=== PATIENT | female | born 1980 | race African-American/Black ===

== ENCOUNTER 2019-10-25 09:46 | Outpatient (CLI) | payer BC, SELFPAY ==
--- NOTE | 2019-10-25 | DI.MRI_ITS ---
CLINICAL HISTORY: SUDDEN VISION LOSS,H53.139,ACUTE NECK PAIN, HEADACHE AFTER TRAUMA, CONCERN. TECHNIQUE: A 3D tvta-ue-glskgc study was performed.. COMPARISON: None. FINDINGS: Carotid Arteries: Petrous: Normal. Cavernous: Normal. Cerebral: Normal. Middle Cerebral Arteries: Right: No aneurysm or significant stenosis. Left: No aneurysm or significant stenosis. Anterior Cerebral Arteries: Right: No aneurysm or significant stenosis. Left: No aneurysm or significant stenosis. Vertebral Arteries: Right: No aneurysm or significant stenosis. Left: No aneurysm or significant stenosis. . Basilar Artery: No aneurysm or significant stenosis. Small Vessels: No evidence of beading. IMPRESSION: Normal MRA examination of the [place]. DATA REPOSITORY:
--- NOTE | 2019-10-25 | DI.MRI_ITS ---
EXAM: MR ANGIO NECK WO CLINICAL HISTORY: SUDDEN VISION LOSS,H53.139,ACUTE NECK PAIN, HEADACHE AFTER TRAUMA,. TECHNIQUE: 2D and 3D bpan-ul-dxvogl studies were performed. There is some artifact at the level of the aortic arch and proximal common carotid and vertebral arteries. COMPARISON: No exams were available for comparison FINDINGS: Common Carotid: Right: Normal. Left: Normal. External Carotid: Right: Normal. Left: Normal. Internal Carotid: Right: Normal. Left: Normal. Vertebral Artery: Right: Normal. Left: Normal. IMPRESSION: Normal MRA of the neck. No evidence of dissection, vascular injury or significant stenosis. DATA REPOSITORY:
--- NOTE | 2019-10-25 16:57 | DI.VRAD_ITS ---
PROCEDURE INFORMATION: Exam: MR Angiogram Head Without Contrast, Arteries Exam date and time: 10/25/2019 3:29 PM Age: 38 years old Clinical indication: Headache and visual disturbance; Sudden visual loss; Patient HX: Tree limb fell on neck 4 weeks ago, concern for vertebral artery dissection TECHNIQUE: Imaging protocol: MR angiogram head without contrast. Exam focused on the arteries. 3D rendering: MIP and/or 3D reconstructed images were created by the technologist. COMPARISON: MR ANGIO NECK WO 10/25/2019 4:07 PM FINDINGS: Anterior cerebral arteries: Intracranial segment is patent with no significant stenosis. No aneurysm. Right internal carotid artery: Intracranial segment is patent with no significant stenosis. No aneurysm. Right middle cerebral artery: No occlusion or significant stenosis. No aneurysm. Right posterior cerebral artery: No occlusion or significant stenosis. No aneurysm. Right vertebral artery: No occlusion or significant stenosis. No aneurysm. Left internal carotid artery: Intracranial segment is patent with no significant stenosis. No aneurysm. Left middle cerebral artery: No occlusion or significant stenosis. No aneurysm. Left posterior cerebral artery: No occlusion or significant stenosis. No aneurysm. Left vertebral artery: No occlusion or significant stenosis. No aneurysm. Basilar artery: No occlusion or significant stenosis. No aneurysm. IMPRESSION: No MRA evidence of intracranial arterial occlusion or significant stenosis. Dictated and Authenticated by: Bassam Peña MD. Ordering:NAS Welsh MD
--- NOTE | 2019-10-25 16:59 | DI.VRAD_ITS ---
PROCEDURE INFORMATION: Exam: MR Angiography Neck Without Contrast Exam date and time: 10/25/2019 4:26 PM Age: 38 years old Clinical indication: Headache and visual disturbance; Sudden visual loss; Patient HX: Tree limb fell on neck 4 weeks ago TECHNIQUE: Imaging protocol: Magnetic resonance angiography of the neck without contrast. 3D rendering: MIP and/or 3D reconstructed images were created by the technologist. COMPARISON: No relevant prior studies available. FINDINGS: Right common carotid artery: No significant stenosis or occlusion. Right internal carotid artery: Extracranial segment is patent without evidence of hemodynamically significant stenosis. Right external carotid artery: Unremarkable. Right vertebral artery: No significant stenosis or occlusion. Left common carotid artery: No significant stenosis or occlusion. Left internal carotid artery: Extracranial segment is patent without evidence of hemodynamically significant stenosis. Left external carotid artery: Unremarkable. Left vertebral artery: No significant stenosis or occlusion. IMPRESSION: No MRA evidence of occlusion or significant stenosis in the arteries of the neck. REFERENCES: NASCET CRITERIA. The degree of internal carotid artery stenosis is based on NASCET criteria. Normal is no stenosis. Mild is less than 50% stenosis. Moderate is 50-69% stenosis. Severe is 70% to 99% stenosis. Total occlusion is no detectable patent lumen. Dictated and Authenticated by: Bassam Peña MD. Ordering:NAS Welsh MD
== END 2019-10-25 10:06 ==
PROVIDERS: PCP Family Medicine; Visit Provider Family Medicine
DX: M54.2 Cervicalgia (principal); R51 Headache; H53.139 Sudden visual loss, unspecified eye
CPT/HCPCS: 70544; 70547

== ENCOUNTER 2020-04-25 01:59 | Outpatient (CLI) | payer BC, SELFPAY ==
--- NOTE | 2020-04-25 10:35 | DI.MAMMO_ITS ---
EXAM: MG MAMMO SCREENING CLINICAL HISTORY: SCREENING, Z12.31, [facility], Z00.00 TECHNIQUE: Mammograms were interpreted according to the usual protocol including computer analysis w [employer] CAD system, tomosynthesis and C-view imaging. COMPARISON: FINDINGS: The breasts are heterogeneously dense. No dominant mass or clumped microcalcification is identified in either breast. The current examination is compared with previous examination of July 2017 and ere has been no gross interval change in appearance in comparison with the prior study except for int erval reduction mammoplasty. IMPRESSION: No specific evidence of malignancy at this time. Routine screening examinations are suggested at yea rly intervals in this age group according to the ACR guidelines. BI-RADS Category 1 - Negative Breast Density - Category C - Heterogeneously dense
== END 2020-04-25 02:19 ==
PROVIDERS: PCP Family Medicine; Visit Provider Family Medicine
DX: Z00.00 Encounter for general adult medical examination without abnormal findings (principal); Z12.31 Encounter for screening mammogram for malignant neoplasm of breast
CPT/HCPCS: 77063; 77067

== ENCOUNTER 2020-12-29 19:23 | Observation (INO) | payer BC, SELFPAY ==
[2020-12-29] VITALS (44 sets, daily range): BP systolic 109–144; BP diastolic 71–97; PULSE 51–99; RESP 10–23; TEMP 37.1; O2SAT 98–100
--- NOTE | 2020-12-29 19:15 | RT.EKG_ITS ---
APPROVED REPORT Exam: Resting ECG Reason for Exam: chest pain Patient Location: E HR:99 bpm ECG Measurements Heart Rate 99 AXIS [place] 170 P 53 QRSd 87 QRS 16 QT 358 T 38 QTc 459 Conclusion Sinus rhythm. No ST elevation
--- NOTE | 2020-12-29 20:08 | DI.RAD_ITS ---
Exam(s) XR CHEST 2V PA LATERAL EXAM: XR CHEST 2V PA LATERAL CLINICAL HISTORY: chest pain TECHNIQUE: 2D digital imaging was performed. COMPARISON: No exams were available for comparison FINDINGS: The heart is not enlarged. The lungs are clear and well expanded. No pleural effusion seen. Mediastin al contours appear intact. IMPRESSION: Normal chest. RADIATION DOSE DELIVERED: Total DLP
[2020-12-29] MEDS: Aspirin 81 MG CHEW 324 MG CH (20:15)
[2020-12-29 20:27] LABS: Abs Immature Grans 0.02 10^3/uL (0.0-0.06); Absolute Basophil Count 0.06 10^3/uL (0.0-0.2); Absolute Eosinophil Count 0.31 10^3/uL (0.0-0.7); Absolute Lymphocyte Count 3.28 10^3/uL (1.2-3.4); Absolute Monocyte Count 0.57 10^3/uL (0.1-0.8); Absolute Neutrophil Count 2.92 10^3/uL (1.2-6.7); Basophils % 0.8; Eosinophils % 4.3; HCT 42.6 % (36.0-46.0); HGB 14.4 g/dL (11.2-15.7); Immature Grans % 0.3; Lymphocytes % 45.8; MCH 33.3 pg (27.0-33.0); MCHC 33.8 % (32.0-36.0); MCV 98.6 fL (80-95); MPV 11.5 fL (8.0-11.0); Neutrophils % 40.8; Nucleated RBC 0 %; Platelet Count 199 10^3/uL (130-400); RBC 4.32 10^6/uL (3.93-5.22); RDW 12.8 % (11.7-14.6); RDW-SD 46.6 fL; WBC 7.16 10^3/uL (4.4-10.8)
[2020-12-29 20:38] LABS: Prothrombin Time 10.4 sec (9.3-11.0)
--- NOTE | 2020-12-29 20:45 | ED.GENADUL_ITS ---
Discharge Plan Disposition Patient Disposition: [facility] INPATIENT Condition: Stable Discharge Details Chief Complaint: Chest Pain Clinical Impression: Chest pain Primary Care Provider: Blaise Harris ED Provider: [place] Home Meds and New Rx's Prescriptions: No Action calcium carbonate [Calcium 500] 500 MG tablet 500 mg PO BID 2AM 2 PM RF: 0 ibuprofen 200 MG tablet 800 mg PO PRN PRNRF: 0 levalbuterol tartrate [Xopenex HFA] 15 GM HFA aerosol inhaler 2 puff Inhalation RF: 0 multivitamin [Daily Multi-Vitamin] 1 EACH tablet 1 tab PO DAILY RF: 0 cephalexin 500 MG capsule 500 mg PO QID Qty: 28 RF: 0 cholecalciferol (vitamin D3) 1,000 UNIT tablet 5,000 unit PO DAILY RF: 0 Medical Decision Making <DAVE Capone - Last Filed: 12/29/20 23:34> This is a 40-year-old female who reports intermittent chest pain, dyspnea with exertion, dizziness, generalized fatigue, ever since receiving her Covid vaccine back in July. Was evaluated by her primary care for this, normal EKG. Symptoms woke her from sleep this morning and were different than her baseline. Did not take any medications for her symptoms. Clinically she appears well, nontoxic, hemodynamically stable. She is afebrile, O2 sats 100% on room air. Lungs are clear to auscultation. No reproducible discomfort. Differential is broad, includes not excluded to atypical ACS, CHF, costochondritis, pneumonia, PE, endocarditis, myocarditis, etc. Will provide a full dose aspirin, initiate cardiac work-up including BNP and D-dimer Upon reevaluation after receiving aspirin, patient reports that she is nearly asymptomatic, symptoms are improving. Initial laboratory values are unremarkable for any obvious emergent process. D- dimer 283, troponin less than 0.05 BNP 19. Potassium 3.1. Will provide 40 p.o. potassium. Patient states that with her dyspnea with exertion, she has not been working out as much as she has changed her diet, believes could be a reason why her potassium is low. Heart score of 1. Patient is agreeable to awaiting repeat troponin and EKG. Case was discussed with Dr. Erickson who personally evaluated the patient, please see his note. Patient again evaluated at 2200, reports that she feels well, asymptomatic. Awaiting repeat troponin and EKG. If unremarkable, plan is to subsequently discharge patient after successful rapid rule out here in the ER, she will contact her primary care office tomorrow to discuss her ER visit and need for reevaluation as an outpatient. She is scheduled to be seen on the but will attempt to be seen sooner. She understands that further evaluation such as echocardiogram and/or stress test likely indicated. Repeat EKG 2241, please see official report by Dr. Erickson. Sinus arrhythmia, prolonged AK interval, ventricular rate of 60. There appears to be an upsloping ST segment that was not present in the initial EKG. Given the change in the delta EKG, case discussed with Dr. Erickson, will discuss case with our hospitalist team for admission. Case discussed with Dr. Pugh who will personally come evaluate the patient and the exam room Repeat remains less than 0.05 Dr. Pugh evaluated the patient and agreeable to an observation admission Medical Records Medical records reviewed: Yes I reviewed the patient's medical records. Imaging Data Radiologic Study: Attestation: I personally reviewed and interpreted this imaging study as follows: Imaging: X-Ray Radiologist's impression: Exam: XR Chest Exam date and time: 12/29/2020 8:46 PM Age: 40 years old Clinical indication: Other: Chest pain TECHNIQUE: Imaging protocol: XR of the chest. Views: 2 views. COMPARISON: No relevant prior studies available. FINDINGS: Lungs: Unremarkable. No consolidation. Pleural spaces: Unremarkable. No pleural effusion. No pneumothorax. Heart/Mediastinum: Unremarkable. No cardiomegaly. Bones/joints: Unremarkable. IMPRESSION: No acute abnormality. Lab Data Lab results reviewed: Yes I reviewed the patient's lab results. Labs: Laboratory Tests Range/Units 12/29/20 12/29/20 12/29/20 19:35 19:35 19:35 WBC (4.4-10.8) 10^3/uL 7.16 RBC (3.93-5.22) 10^6/uL 4.32 Hgb (11.2-15.7) g/dL 14.4 Hct (36.0-46.0) % 42.6 MCV (80-95) fL 98.6 H MCH (27.0-33.0) pg 33.3 H MCHC (32.0-36.0) % 33.8 RDW (11.7-14.6) % 12.8 Plt Count (130-400) 10^3/uL 199 MPV (8.0-11.0) fL 11.5 H Immature Gran % 0.3 Neutrophils % 40.8 Lymphocytes % 45.8 Monocytes % 8.0 Eosinophils % 4.3 Basophils % 0.8 Nucleated RBC % % 0 Absolute Neutrophils (1.2-6.7) 10^3/uL 2.92 Absolute Lymphocytes (1.2-3.4) 10^3/uL 3.28 Absolute Monocytes (0.1-0.8) 10^3/uL 0.57 Absolute Eosinophils (0.0-0.7) 10^3/uL 0.31 Absolute Basophils (0.0-0.2) 10^3/uL 0.06 PT (9.3-11.0) sec 10.4 INR (0.9-1.1) 1.0 APTT (21.0-27.5) sec 25.0 D-Dimer (<500) ng/mlFEU 283 Sodium (136-145) mmol/L 141 Potassium (3.5-5.1) mmol/L 3.1 L Chloride (98-107) mmol/L 105 Carbon Dioxide (21.0-32.0) mmol/L 25.5 Anion Gap (3-11) mmol/L 10.5 BUN (7-18) mg/dL 8 Creatinine (0.55-1.02) mg/dL 0.9 Estimated GFR/1.73 m2 (mL/min/1.73m2) >= 60.00 Glucose (74-106) mg/dL 95 Calcium (8.5-10.1) mg/dL 9.3 Magnesium (1.8-2.4) mg/dL 1.8 Total Bilirubin (0.2-1.0) mg/dL 0.3 AST (15-37) U/L 20 ALT (14-59) U/L 26 Alkaline Phosphatase (46-116) U/L 83 Troponin I (<0.06) ng/mL < 0.05 NT-Pro-B Natriuret Pep (<300) pg/mL 19 Total Protein (6.4-8.2) g/dL 7.9 Albumin (3.4-5.0) g/dL 4.0 Range/Units 08/02/21 22:40 WBC (4.4-10.8) 10^3/uL RBC (3.93-5.22) 10^6/uL Hgb (11.2-15.7) g/dL Hct (36.0-46.0) % MCV (80-95) fL MCH (27.0-33.0) pg MCHC (32.0-36.0) % RDW (11.7-14.6) % Plt Count (130-400) 10^3/uL MPV (8.0-11.0) fL Immature Gran % Neutrophils % Lymphocytes % Monocytes % Eosinophils % Basophils % Nucleated RBC % % Absolute Neutrophils (1.2-6.7) 10^3/uL Absolute Lymphocytes (1.2-3.4) 10^3/uL Absolute Monocytes (0.1-0.8) 10^3/uL Absolute Eosinophils (0.0-0.7) 10^3/uL Absolute Basophils (0.0-0.2) 10^3/uL PT (9.3-11.0) sec INR (0.9-1.1) APTT (21.0-27.5) sec D-Dimer (<500) ng/mlFEU Sodium (136-145) mmol/L Potassium (3.5-5.1) mmol/L Chloride (98-107) mmol/L Carbon Dioxide (21.0-32.0) mmol/L Anion Gap (3-11) mmol/L BUN (7-18) mg/dL Creatinine (0.55-1.02) mg/dL Estimated GFR/1.73 m2 (mL/min/1.73m2) Glucose (74-106) mg/dL Calcium (8.5-10.1) mg/dL Magnesium (1.8-2.4) mg/dL Total Bilirubin (0.2-1.0) mg/dL AST (15-37) U/L ALT (14-59) U/L Alkaline Phosphatase (46-116) U/L Troponin I (<0.06) ng/mL < 0.05 NT-Pro-B Natriuret Pep (<300) pg/mL Total Protein (6.4-8.2) g/dL Albumin (3.4-5.0) g/dL ECG Data Attestation: I personally reviewed and interpreted this ECG (s) as follows: Interpretation: Please see official report by Dr. Erickson. Sinus rhythm, ventricular rate of 99. No ST elevation. <Jake Erickson MD - Last Filed: 12/29/20 21:56> Patient seen, examined, discussed with Mr. Lake. She is a pleasant and delightful 40-year-old female with atypical episodes of chest pain intermitt ently over weeks time. I agree with his assessment and plan including serial cardiac troponin, D-dimer and BNP. HPI <DAVE Capone - Last Filed: 12/29/20 23:34> General Mode of arrival: ambulatory . Date/Time Provider Initiated Documentation: 12/29/20 19:24 . Limitations to Documentation: no limitations . Information obtained by: patient . HPI Narrative: This is a 40-year-old female, past medical history of reactive airway disease, chronic sinusitis, presenting to the ER complaining of chest pain and dyspnea with exertion. Patient states that she received her first Covid vaccine, Moderna, back in July, had a reaction to it which included chest pain, dyspnea with exertion, lasted for 1 month. Was seen by her primary care provider, and after symptoms resolved completely she ended up having her second vaccine. States that she had another reaction at that time and essentially has had some fatigue, left-sided chest pain with exertion, dyspnea with exertion, intermittent dizziness, etc. ever since. She was seen by her primary care provider, had an EKG which was normal, and there was talk of if symptoms persisted they would look forward with an outpatient stress test. Patient states that earlier this morning she awoke from sleep with what she describes as left sided chest pain, went under her left breast, sharp in nature. Did not take any [id number] medication for this. She states at the time she felt dizziness, not like the room was spinning, felt diaphoretic, flushed. Symptoms improved throughout the day but never resolved completely. She went to work throughout the day, noticed some additional symptoms after work, her primary care office was closed came to the ER for further evaluation. Not describes her pain as a dull ache, does not radiate anywhere. She denies headache, visual changes, neck pain, cough, abdominal pain, nausea, vomiting. Patient did travel to [place] and reports that after her trip she did have bilateral lower extremity swelling but that resolved completely. Denies any pain or swelling in her legs now. Denies any significant family cardiac history. Patient is a smoker. Related Data Home Medications Medication Instructions Recorded Confirmed calcium carbonate [Calcium 500] 500 mg PO BID 2AM 2 PM 03/09/13 02/06/17 cholecalciferol (vitamin D3) 5,000 unit PO DAILY 06/16/16 02/06/17 cephalexin 500 mg PO QID #28 cap 02/06/17 levalbuterol tartrate [Xopenex HFA] 2 puff INHALATION 02/06/17 multivitamin [Daily Multi-Vitamin] 1 tab PO DAILY 02/06/17 02/06/17 ibuprofen 800 mg PO PRN PRN 02/08/17 Previous Rx's Medication Instructions Recorded cephalexin 500 mg PO QID #28 cap 02/06/17 Allergies Allergy/AdvReac Type Severity Reaction Status Date / Time Latex, Natural Rubber Allergy Severe Skin Rash Unverified 02/08/17 10:06 nitrofurantoin Allergy Severe Hives Unverified 02/08/17 10:06 [From Macrobid] General Stated Complaint: Chest Pain MICHAEL: 2 Review of Systems <DAVE Capone - Last Filed: 12/29/20 23:34> Constitutional Constitutional: Reports fatigue, Denies fever(s) and Denies headache(s) Eyes Eyes: Denies change in vision ENT Ears, Nose, Mouth, and Throat: Denies headache(s) and Denies neck pain Cardiovascular Cardiovascular: Reports chest pain, Reports dyspnea and Reports dyspnea on exertion Respiratory Respiratory: Denies cough, Reports dyspnea and Reports dyspnea on exertion Gastrointestinal Gastrointestinal: Denies abdominal pain, Denies nausea and Denies vomiting Musculoskeletal Musculoskeletal: Denies back pain, Denies neck pain, Denies numbness and Denies tingling Integumentary/Breasts Skin/Breast: Denies rash Neurologic Neurologic: Denies headache(s), Denies numbness and Denies tingling Endocrine Endocrine: Reports fatigue PFSH <DAVE Capone - Last Filed: 12/29/20 23:34> Medical History Chronic sinusitis Reactive airway disease Sciatica Surgical History Appendectomy after 2nd son. No sequelae. section 2006 [facility] Colonoscopy - MAC (06/16/16) EGD - MAC (06/16/16) Ligation of fallopian tube (02/06/13) Path report shows Bilateral tubal. Social History Smoking/Tobacco Use Status: Never Smoking risk assessment performed?: Yes Alcohol Intake: current Alcohol Intake frequency: holidays/special occasions only Drug use: Never Do you feel safe at home: Yes Do you feel safe in your relationship?: Yes Exam <DAVE Capone - Last Filed: 12/29/20 23:34> Const General: cooperative, healthy appearing, comfortable and no acute distress Orientation: alert and awake HENMT Head: normal to inspection, normocephalic and atraumatic Face and sinus: normal facial exam Mouth: moist mucous membranes Eyes General: appearance normal, both eyes and all related structures Conjunctivae: conjunctivae normal Neck Neck: normal visual inspection, full ROM, trachea midline and supple Chest Chest: normal inspection of the chest and normal palpation of entire chest wall Resp Effort & Inspection: normal respiratory effort and able to speak in complete sentences Auscultation: clear to auscultation bilaterally Cardio Rate: regular rate Rhythm: regular rhythm GI Inspection: normal to inspection Palpation: soft, not firm, no guarding, no pulsatile masses and nontender Back/Spine/Pelvis Back: no CVA tenderness and No back tenderness Skin General skin exam: no rashes or lesions noted Neuro General: patient alert, patient awake, moves all extremities and no focal motor deficits Cognition: normal cognition Speech: speech normal Gait: normal gait Motor: muscle tone normal throughout Sensory Exam: no sensory deficits noted Extrem General: normal to inspection, full ROM, capillary refill normal, no pedal edema and no calf tenderness Psych Appearance: grossly normal Mental Status: mental status grossly normal Course <DAVE Capone - Last Filed: 12/29/20 23:34> Vital Signs Vital signs: Vital Signs Temperature 37.1 C 12/29/20 19:29 Pulse 99 H 12/29/20 19:29 Respiratory Rate 20 12/29/20 19:29 Blood Pressure 143/86 H 12/29/20 19:29 Pulse Oximetry 100 12/29/20 19:29 Temperature 37.1 C 12/29/20 19:29 Pulse 99 H 12/29/20 19:29 Respiratory Rate 15 12/29/20 19:38 Respiratory Effort Non-Labored 12/29/20 19:38 Respiratory Depth Normal 12/29/20 19:38 Respiratory Pattern Normal 12/29/20 19:38 Blood Pressure 143/86 H 12/29/20 19:29 Blood Pressure Position Sitting 12/29/20 19:29 Pulse Oximetry 100 12/29/20 19:29 Oxygen Delivery Method Room Air 12/29/20 19:29 Oxygen Flow Rate 0 12/29/20 19:29 Pain Level 7 12/29/20 19:29 Lab/Test Results Lab/Test Results: Laboratory Tests Range/Units 12/29/20 12/29/20 19:35 19:35 WBC (4.4-10.8) 10^3/uL 7.16 RBC (3.93-5.22) 10^6/uL 4.32 Hgb (11.2-15.7) g/dL 14.4 Hct (36.0-46.0) % 42.6 MCV (80-95) fL 98.6 H MCH (27.0-33.0) pg 33.3 H MCHC (32.0-36.0) % 33.8 RDW (11.7-14.6) % 12.8 Plt Count (130-400) 10^3/uL 199 MPV (8.0-11.0) fL 11.5 H Immature Gran % 0.3 Neutrophils % 40.8 Lymphocytes % 45.8 Monocytes % 8.0 Eosinophils % 4.3 Basophils % 0.8 Nucleated RBC % % 0 Absolute Neutrophils (1.2-6.7) 10^3/uL 2.92 Absolute Lymphocytes (1.2-3.4) 10^3/uL 3.28 Absolute Monocytes (0.1-0.8) 10^3/uL 0.57 Absolute Eosinophils (0.0-0.7) 10^3/uL 0.31 Absolute Basophils (0.0-0.2) 10^3/uL 0.06 PT (9.3-11.0) sec 10.4 INR (0.9-1.1) 1.0 APTT (21.0-27.5) sec 25.0
[2020-12-29 20:52] LABS: ALT 26 U/L (14-59); AST 20 U/L (15-37); Alkaline Phosphatase 83 U/L (46-116); Anion Gap 10.5 mmol/L (3-11); BUN 8 mg/dL (7-18); Bilirubin, Total 0.3 mg/dL (0.2-1.0); CO2 25.5 mmol/L (21.0-32.0); CREATININE 0.9 mg/dL (0.55-1.02); Calcium 9.3 mg/dL (8.5-10.1); Chloride 105 mmol/L (98-107); Glucose 95 mg/dL (74-106); Magnesium 1.8 mg/dL (1.8-2.4); NT-proBNP 19 pg/mL (<300); Potassium 3.1 mmol/L (3.5-5.1); Sodium 141 mmol/L (136-145); Total Protein 7.9 g/dL (6.4-8.2); Troponin I < 0.05 ng/mL (<0.06)
[2020-12-29 20:59] LABS: D-Dimer 283 ng/mlFEU (<500)
[2020-12-29] MEDS: Potassium Chloride 20 MEQ TABCR 40 MEQ PO (20:59)
--- NOTE | 2020-12-29 21:55 | DI.VRAD_ITS ---
PROCEDURE INFORMATION: Exam: XR Chest Exam date and time: 12/29/2020 8:46 PM Age: 40 years old Clinical indication: Other: Chest pain TECHNIQUE: Imaging protocol: XR of the chest. Views: 2 views. COMPARISON: No relevant prior studies available. FINDINGS: Lungs: Unremarkable. No consolidation. Pleural spaces: Unremarkable. No pleural effusion. No pneumothorax. Heart/Mediastinum: Unremarkable. No cardiomegaly. Bones/joints: Unremarkable. IMPRESSION: No acute abnormality. Dictated and Authenticated by: Frederick Phillips MD. Ordering:DESIRAE Quiros MD
--- NOTE | 2020-12-29 22:30 | RT.EKG_ITS ---
APPROVED REPORT Exam: Resting ECG Reason for Exam: chest pain Patient Location: E HR:60 bpm ECG Measurements Heart Rate 60 AXIS [place] 210 P 48 QRSd 79 QRS 20 QT 409 T 36 QTc 408 Conclusion NSR, [place] elevation versus comparison from 19:34hrs
[2020-12-29 23:02] LABS: Troponin I < 0.05 ng/mL (<0.06)
--- NOTE | 2020-12-29 23:33 | W.PM.HP.N ---
Date of service: 12/29/20 Time of Service: 23:33 Assessment and Plan Assessment and plan (1) Chest pain: Status: Acute Assessment and plan: Atypical CP. No etiology evident, ACS unlikely. Temporal relation to vaccine noted but no specific connection to be made at present. The EKG change is noted, does not look like ischemia or pericarditis, I wonder if it may have some relation to replenishment of potassium? At any rate will complete trend of troponin and plan on stress test in AM. History of Present Illness History of Present Illness Chief Complaint: CP Narrative: 40 female, has been having some atypical CP since receiving Moderna COVID vaccine in July. Today however she experienced a different CP, described as follows: awoke her from sleep, sharp, left sided and non-radiating, associated with some diaphoresis and lightheadedness. Has had several episodes through the day and then decided to come for evaluation this evening as symptoms were not resolving. In ER initial findings of note for neg trop, EKG with slight TW flattening, K 3.1, d-Dimer 283. Patient given ASA and KCL 40 PO. Repeat trop negative but f/u EKG shows 1/2-1 mm J-point elevation V2-3, and generally more upright T waves throughout. Due to EKG changes I was asked to evaluate for admission. At present time patient states pain has largely resolved. Review of Systems All systems reviewed & are unremarkable except as noted in HPI and below PFSH Medical History Chronic sinusitis Reactive airway disease Sciatica Surgical History Appendectomy after 2nd son. No sequelae. section 2005 [facility] Colonoscopy - MAC (06/16/16) EGD - MAC (06/16/16) Ligation of fallopian tube (02/06/13) Path report shows Bilateral tubal. Social History Smoking/Tobacco Use Status: Never Smoking risk assessment performed?: Yes Alcohol Intake: current Alcohol Intake frequency: holidays/special occasions only Drug use: Never Do you feel safe at home: Yes Do you feel safe in your relationship?: Yes Meds Allergies and Home Medications Allergies Allergy/AdvReac Type Severity Reaction Status Date / Time Latex, Natural Rubber Allergy Severe Skin Rash Unverified 02/08/17 10:06 nitrofurantoin Allergy Severe Hives Unverified 02/08/17 10:06 [From Macrobid] Home Medications Medication Instructions Recorded Confirmed Type calcium carbonate [Calcium 500] 500 mg PO BID 2AM 2 PM 03/09/13 02/06/17 History cholecalciferol (vitamin D3) 5,000 unit PO DAILY 06/16/16 02/06/17 History cephalexin 500 mg PO QID #28 cap 02/06/17 Rx levalbuterol tartrate [Xopenex HFA] 2 puff INHALATION 02/06/17 History multivitamin [Daily Multi-Vitamin] 1 tab PO DAILY 02/06/17 02/06/17 History ibuprofen 800 mg PO PRN PRN 02/08/17 History Exam Narrative Exam Narrative: 118/52, 54, 37.1, 15, 99% RA. HEENT atraumatic; neck supple; JVP approx 6 cm; lungs clear; heart RRR w/o MRG; chest nontender, no pain with resisted left shoulder adduction or forward flexion; abdomen soft and NT; extremities w/o edema, clavs NT, pulse 2+/= Christian's negative; neuro Ox3, nonfocal Results Labs Result diagrams: 12/29/20 19:35 12/29/20 19:35 Labs: Laboratory Results - last 24 hr 12/29/20 12/29/20 12/29/20 19:35 19:35 19:35 WBC 7.16 RBC 4.32 Hgb 14.4 Hct 42.6 MCV 98.6 H MCH 33.3 H MCHC 33.8 RDW 12.8 Plt Count 199 MPV 11.5 H Immature Gran % 0.3 Neutrophils % 40.8 Lymphocytes % 45.8 Monocytes % 8.0 Eosinophils % 4.3 Basophils % 0.8 Nucleated RBC % 0 Absolute Neutrophils 2.92 Absolute Lymphocytes 3.28 Absolute Monocytes 0.57 Absolute Eosinophils 0.31 Absolute Basophils 0.06 PT 10.4 INR 1.0 APTT 25.0 D-Dimer 283 Sodium 141 Potassium 3.1 L Chloride 105 Carbon Dioxide 25.5 Anion Gap 10.5 BUN 8 Creatinine 0.9 Estimated GFR/1.73 m2 >= 60.00 Glucose 95 Calcium 9.3 Magnesium 1.8 Total Bilirubin 0.3 AST 20 ALT 26 Alkaline Phosphatase 83 Troponin I < 0.05 NT-Pro-B Natriuret Pep 19 Total Protein 7.9 Albumin 4.0 12/29/20 22:40 WBC RBC Hgb Hct MCV MCH MCHC RDW Plt Count MPV Immature Gran % Neutrophils % Lymphocytes % Monocytes % Eosinophils % Basophils % Nucleated RBC % Absolute Neutrophils Absolute Lymphocytes Absolute Monocytes Absolute Eosinophils Absolute Basophils PT INR APTT D-Dimer Sodium Potassium Chloride Carbon Dioxide Anion Gap BUN Creatinine Estimated GFR/1.73 m2 Glucose Calcium Magnesium Total Bilirubin AST ALT Alkaline Phosphatase Troponin I < 0.05 NT-Pro-B Natriuret Pep Total Protein Albumin Last Vital Signs Temp 37.1 C 12/29/20 19:29 Pulse 54 L 12/29/20 23:01 Resp 19 12/29/20 23:10 BP 118/82 12/29/20 23:01 Pulse Ox 100 12/29/20 23:10
[2020-12-30] VITALS (8 sets, daily range): BP systolic 105–124; BP diastolic 70–84; PULSE 54–72; RESP 12–18; TEMP 36–37.1; O2SAT 99–100
[2020-12-30 00:09] LABS: Source Nasal/Nares
[2020-12-30 00:58] LABS: COVID-19 PCR Negative (Negative)
[2020-12-30 08:36] LABS: Troponin I < 0.05 ng/mL (<0.06)
--- NOTE | 2020-12-30 08:50 | INITIAL_ITS ---
- If Service Date Differs Date of service: 12/30/20 Time of Service: 08:50 Care Management Initial Assess REASON FOR HOSPITALIZATION:: Chest Pain PAST MEDICAL HISTORY/PAST SURGICAL HISTORY:: Medical History . Chronic sinusitis. Reactive airway disease. Sciatica. Surgical History . Appendectomy. after 2nd son. No sequelae. section. 2005 [facility]. Colonoscopy - MAC (06/16/16). EGD - MAC (06/16/16). Ligation of fallopian tube (02/06/13). Path report shows Bilateral tubal. PREVIOUS FUNCTIONAL STATUS/SOCIAL/FAMILY SUPPORTS:: Ana [place] in [place] with her Ryan and three children. 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 CURRENT FUNCTIONAL STATUS:: Ana was sitting up in bed when CM met with her and was pleasant and easily engaged in conversation. Ana states that shes had intermittent chest pain since having her moderna vaccine in July. This time the chest pain and shortness of breath were different which promted her to drive herself to the ER. She is concerned about her health and not knowing what is causing her ongoing symptoms. She is scheduled for a stress test at 1:00 and is hopeful to find out more about the cause of her symptoms. She denies having chest pain, pressure or SOB since her admission. ADVANCE DIRECTIVES:: None on File Has patient been provided with info about the portal/API?: Yes Did the patient sign up for the portal?: No CODE STATUS:: Full Code INSURANCE COVERAGE / FINANCIAL ISSUES:: BS CURRENT HOME/COMMUNITY SERVICES/EQUIPMENT:: None PRIMARY CARE PHYSICIAN:: Blaise Harris POTENTIAL DISCHARGE NEEDS:: Follow up with PCP, [facility] pulmonology and plan of care. PATIENT/FAMILY EDUCATION NEEDS:: Review of discharge instructions, ask me three ANTICIPATED BARRIERS TO DISCHARGE:: None at this time TRANSPORTATION:: Via private vehicle with Ryan PLAN:: Ana will likely be discharged home with no new services following her stress test. She will follow up with her PCP, pulmonology and plan of care. CM continues to support discharge needs.
[2020-12-30 09:23] LABS: Potassium 4.2 mmol/L (3.5-5.1)
--- NOTE | 2020-12-30 13:00 | ETT_ITS ---
APPROVED REPORT Exam: Exercise Treadmill Patient Location: In-Patient Room/Bed: 230 Stress Nurse: Kendal Funes RN Ordering Provider:DAVID CROWELL, Contact Number: BMI: 29.44 Baseline Rhythm: Sinus Rhythm Indications: Chest pain, atypical Medical History Medical History: Reactive airway disease Cardiac Medications: Xopenex HFA Allergies: Latex, Nitrofurantoin Cardiac Risk Factors: FHX of CAD, Asthma Previous Cardiac Procedures: None Pretest Chest Pain Characteristics: No chest pain Exercise History: Sedentary since July, previously physically active Physical Disabilities: None Lung Sounds: Clear to auscultation Heart Sounds: Regular Stress Test Details Test: Exercise stress testing was performed using a Heber protocol. Rest Stress HR Resting HR Supine: 67 bpm Max Heart Rate (APMHR): 179 bpm Resting HR Standin bpm Target HR (85% APMHR): 152 bpm Max HR Achieved: 138 bpm % of APMHR: 77 Recovery HR: 80 bpm HR response to stress: Normal HR response to stress BP Resting BP Supine: 108/82 mmHg Resting BP Standin/78 mmHg Max BP: 144/82 mmHg Recovery BP: 114/78 mmHg BP response to stress: Normal blood pressure response to stress. ECG Resting ECG: Sinus Rhythm Ectopy: None Stress ECG: Sinus Tachycardia ST Change: No significant ST segment changes noted Arrhythmia: None Recovery ECG: Sinus Rhythm Recovery ST Change: No significant ST segment changes noted Recovery Arrhythmia: None Clinical Reason for Termination: Fatigue Stress Symptoms: Chest pressure, Dyspnea Exercise duration: 10 min38 sec Highest Stage Reached: Stage 4: 4.2 mph at 16% grade. Exercise capacity: 12.85 METs Garcia Treadmill Score: 6 Rate Pressure Product: Stress ECG Conclusion 1. The patient exercised for 10 minutes and 38 seconds (12.9 METS). Exercise was stopped due to fati sara. 2. The patient returned chest pressure but this was not exercise limiting. 3. The patient's heart rate and blood pressure augmented appropriately 4. There is no evidence of ischemia on the ECG portion of the exam. Garcia Treadmill Score is 6 which is Low risk. Stress Test Summary STAGE Time (mins) Speed (mph) Grade (%) HR BP SYMPTOMS METS Supine 67 108/82 Standing 82 106/78 SpO2 97% 1 3 1.7 10 106 110/80 3/10 chest pressure 4.6 2 6 2.5 12 124 120/76 moderate SOB 7 3 9 3.4 14 138 SpO2 95% 10.2 1 min recovery 118 144/82 5/10 chest pressure 3 min recovery 88 130/80 6 min recovery 80 114/78 symptoms resolved
--- NOTE | 2020-12-30 16:03 | W.PM.DS.N ---
Date of service: 12/30/20 Time of Service: 16:03 DS: Diagnosis Discharge Diagnosis (1) Chest pain: Status: Acute Discharge Plan Disposition Patient Disposition: HOME Condition: Stable Discharge Details Reason For Visit: CP Admit Date/Time: 12/29/20 23:49 Admit Provider: Frederick Pugh Attending Provider: Frederick Pugh Primary Care Provider: Blaise Harris [facility] Hospital Course: This is a 40-year-old female, past medical history of reactive airway disease, chronic sinusitis, presenting to the ER complaining of chest pain and dyspnea with exertion. Patient states that she received her first Covid vaccine, Moderna, back in July, had a reaction to it which included chest pain, dyspnea with exertion, lasted for 1 month. Was seen by her primary care provider, and after symptoms resolved completely she ended up having her second vaccine. States that she had another reaction at that time and essentially has had some fatigue, left-sided chest pain with exertion, dyspnea with exertion, intermittent dizziness, etc. ever since. She has used an albuterol MDI w/o improvement in her sxs. She has not required albuterol since she was in her 20's. She was seen by her primary care provider, had an EKG which was normal, and there was talk of if symptoms persisted they would look forward with an outpatient stress test. Patient states that earlier on the morning of admission she awoke from sleep with what she describes as left sided chest pain, went under her left breast, sharp in nature. Did not take any [id number] medication for this. She states at the time she felt dizziness, not like the room was spinning, felt diaphoretic, flushed. Symptoms improved throughout the day but never resolved completely. She went to work throughout the day, noticed some additional symptoms after work, her primary care office was closed came to the ER for further evaluation. Not describes her pain as a dull ache, does not radiate anywhere. She denies headache, visual changes, neck pain, cough, abdominal pain, nausea, vomiting. Patient did travel to [place] and reports that after her trip she did have bilateral lower extremity swelling but that resolved completely. Denies any pain or swelling in her legs now. Denies any significant family cardiac history. Patient is a smoker. Her troponin level was negative x 3. WBC count normal. CXR read as normal, but Dr Costa with pulmonary medicine evaluated the CXR and was concerned with some possibly mild perihilar fullness. An outpt CT chest and f/u with pulmonary medicine was arranged. Treadmill stress test was negative for EKG changes or anginal symptoms. Given the possibility of pericarditis, she will d/c on colchicine 0.6 mg daily for 7 days. F/U with PCP in 1-2 weeks. Home Meds and New Rx's Prescriptions: New colchicine 0.6 mg tablet 0.6 mg PO DAILY Qty: 7 RF: 0 Continued calcium carbonate [Calcium 500] 500 MG tablet 500 mg PO BID 2AM 2 PM RF: 0 levalbuterol tartrate [Xopenex HFA] 15 GM HFA aerosol inhaler 2 puff Inhalation RF: 0 multivitamin [Daily Multi-Vitamin] 1 EACH tablet 1 tab PO DAILY RF: 0 cephalexin 500 MG capsule 500 mg PO QID Qty: 28 RF: 0 ibuprofen 200 MG tablet 800 mg PO PRN PRNQty: 0 RF: 0 cholecalciferol (vitamin D3) 1,000 UNIT tablet 5,000 unit PO DAILY RF: 0 Discharge Instructions Stand Alone Forms: Nursing Discharge Form Referrals: Stephania Guzman MD [ [facility] STAFF PHYSICIAN] - (MCNULTY, chest pressure. CXR concerns for sarcoid Pulmonary Clinic will call you with an appointment date and time.) Activity:: Activity as Tolerated Equipment/Supplies:: No Equipment Needed Diet:: Normal Diet Discharge Orders Discharge Orders: Discharge Order (Routine); Ordered 12/30/20 Ordered By: Ricardo Jackson Other Ambulatory Orders: CT chest wo (Routine) Location: None Selected Ordered By: Ricardo Jackson DS: Summary Time Spent with Patient providing and/or coordinating discharge services: Greater than 30 minutes Status at Discharge Functional status at discharge: independent ambulation Overall status at discharge: patient is progressing back to baseline Mental Status: mental status grossly normal Speech and Movement: speech and movement normal Mood: congruent mood Affect: normal affect Exam Psych Mental Status: mental status grossly normal Speech and Movement: speech and movement normal Mood: congruent mood Affect: normal affect DS: Data Vitals/I&O Vitals and I&O: Vital Signs Temperature 36.8 C 12/30/20 11:38 Temperature Source Temporal Artery Scan 12/30/20 11:38 Pulse 57 L 12/30/20 11:38 Pulse Rhythm Regular 12/30/20 08:11 Pulse 55 L 12/29/20 23:41 Respiratory Rate 17 12/30/20 11:38 Respiratory Effort 12/30/20 08:11 Respiratory Depth Normal 12/30/20 08:11 Respiratory Pattern Normal 12/30/20 08:11 Blood Pressure 105/71 12/30/20 11:38 Blood Pressure Mean 84 12/29/20 23:31 Blood Pressure Position Sitting 12/29/20 19:29 Pulse Oximetry 100 12/30/20 11:38 Oxygen Delivery Method Room Air 12/30/20 11:38 Oxygen Flow Rate 0 12/30/20 11:38 Pain Level 0 12/30/20 11:38 Intake & Output 12/29/20 12/30/20 12/30/20 23:59 11:59 23:59 Intake Total 240 / 240 Balance 240 / 240 Weight 97.3 kg 85.077 kg Intake: Oral 240 / 240 Other: Comment using BR independenlty. denies GI issues. Data Completed and Pending Labs on day of discharge: Labs from last 24 hours 12/30/20 12/30/20 12/30/20 08:07 08:07 00:05 WBC RBC Hgb Hct MCV MCH MCHC RDW Plt Count MPV Immature Gran % Neutrophils % Lymphocytes % Monocytes % Eosinophils % Basophils % Nucleated RBC % Absolute Neutrophils Absolute Lymphocytes Absolute Monocytes Absolute Eosinophils Absolute Basophils PT INR APTT D-Dimer Sodium Potassium 4.2 D Chloride Carbon Dioxide Anion Gap BUN Creatinine Estimated GFR/1.73 m2 Glucose Calcium Magnesium Total Bilirubin AST ALT Alkaline Phosphatase Troponin I < 0.05 NT-Pro-B Natriuret Pep Total Protein Albumin COVID-19 Source Nasal/Nares SARS-CoV-2 (PCR) Negative 12/29/20 12/29/20 12/29/20 22:40 19:35 19:35 WBC 7.16 RBC 4.32 Hgb 14.4 Hct 42.6 MCV 98.6 H MCH 33.3 H MCHC 33.8 RDW 12.8 Plt Count 199 MPV 11.5 H Immature Gran % 0.3 Neutrophils % 40.8 Lymphocytes % 45.8 Monocytes % 8.0 Eosinophils % 4.3 Basophils % 0.8 Nucleated RBC % 0 Absolute Neutrophils 2.92 Absolute Lymphocytes 3.28 Absolute Monocytes 0.57 Absolute Eosinophils 0.31 Absolute Basophils 0.06 PT 10.4 INR 1.0 APTT 25.0 D-Dimer 283 Sodium Potassium Chloride Carbon Dioxide Anion Gap BUN Creatinine Estimated GFR/1.73 m2 Glucose Calcium Magnesium Total Bilirubin AST ALT Alkaline Phosphatase Troponin I < 0.05 NT-Pro-B Natriuret Pep Total Protein Albumin COVID-19 Source SARS-CoV-2 (PCR) 12/29/20 19:35 WBC RBC Hgb Hct MCV MCH MCHC RDW Plt Count MPV Immature Gran % Neutrophils % Lymphocytes % Monocytes % Eosinophils % Basophils % Nucleated RBC % Absolute Neutrophils Absolute Lymphocytes Absolute Monocytes Absolute Eosinophils Absolute Basophils PT INR APTT D-Dimer Sodium 141 Potassium 3.1 L Chloride 105 Carbon Dioxide 25.5 Anion Gap 10.5 BUN 8 Creatinine 0.9 Estimated GFR/1.73 m2 >= 60.00 Glucose 95 Calcium 9.3 Magnesium 1.8 Total Bilirubin 0.3 AST 20 ALT 26 Alkaline Phosphatase 83 Troponin I < 0.05 NT-Pro-B Natriuret Pep 19 Total Protein 7.9 Albumin 4.0 COVID-19 Source SARS-CoV-2 (PCR) [facility] Medical History Chronic sinusitis Reactive airway disease Sciatica Surgical History Appendectomy after 2nd son. No sequelae. section 2005 [facility] Colonoscopy - MAC (06/16/16) EGD - MAC (06/16/16) Ligation of fallopian tube (02/06/13) Path report shows Bilateral tubal. Social History Smoking/Tobacco Use Status: Never Smoking risk assessment performed?: Yes Alcohol Intake: current Alcohol Intake frequency: holidays/special occasions only Drug use: Never Do you feel safe at home: Yes Do you feel safe in your relationship?: Yes
--- NOTE | 2020-12-30 16:18 | PDOC.CMDIS ---
- If Service Date Differs Date of service: 12/30/20 Time of Service: 16:18 LACE Index Scoring Tool - Questions: Length of Stay (in days): 2 Acuity (Admit via E.D.?): Yes E.D. Visits: 1 - Answers: Total Score: 6 Risk of Readmission: Low Risk Care Management Discharge Reason for Hospitalization: Chest Pain Discharge Plan: Ana will discharge home via private vehicle with Ryan. Ana should follow up with her PCP in 1-2 weeks and schedule an appointment with [facility] Pulmonology (Pulmonology clinic to call Ana with the appointment date and time). Patient/Family Education Needs: Review discharge instructions and plan to follow up with PCP and [facility] pulmonology, ask me three.
== END 2020-12-30 17:15 | disposition home or self-care (01) ==
LOC: ER 12-30 00:29 → MS 12-30 00:42
PROVIDERS: Admitting Provider General Practice; Emergency Provider Physician Assistant; PCP Family Medicine; Visit Provider General Practice
DX: R07.89 Other chest pain (principal); J45.909 Unspecified asthma, uncomplicated; J32.8 Other chronic sinusitis; R06.00 Dyspnea, unspecified; Z20.822 Contact with and (suspected) exposure to COVID-19; M54.30 Sciatica, unspecified side
CPT/HCPCS: 36415; 80053; 87635; 93005; 99285; 71046; 83735; 83880; 84132; 84484; 85025; 85379; 85610; 85730; 93010; 93017; 99217; 99219; G0378

== ENCOUNTER 2021-02-05 02:16 | Outpatient (CLI) | payer BC, SELFPAY ==
--- NOTE | 2021-02-05 06:15 | DI.US_ITS ---
APPROVED REPORT EXAM: Comprehensive 2D, Doppler, and color-flow Echocardiogram Patient Location: Out-Patient [employer] Operator: Sherry Chanel RDCS (AE) Indications: MCNULTY, Chest pain Other Information Study Quality: Good Conclusion Normal left ventricular wall thickness and chamber size. Estimated ejection fraction is 60 to 65%. Wall motion is normal Normal right ventricular size and systolic function Both atria are normal in size There is no hemodynamically significant valvular disease Mildly dilated ascending aorta measuring 3.53 cm Wall motion Left Ventricle The left ventricle is normal size. The left ventricular systolic function is normal. The left ventric ular ejection fraction is within the normal range. There is normal left ventricular wall thickness. T here is normal LV segmental wall motion. There is no ventricular septal defect visualized. LVEF is 60 -65%. Right Ventricle The right ventricle is normal size. The right ventricular systolic function is normal. The RVSP is 21 .5mmHg. Atria The left atrium size is normal. The right atrium size is normal. The interatrial septum is intact wit h no evidence for an atrial septal defect. Aortic Valve The aortic valve is normal in structure. Aortic valve is trileaflet. There is no aortic valvular sten osis. No aortic regurgitation is present. Mitral Valve The mitral valve is normal in structure. No evidence of mitral valve stenosis. Trace mitral regurgita tion. Tricuspid Valve The tricuspid valve is normal in structure. There is no tricuspid valve stenosis. Trace to mild tricu spid regurgitation. Pulmonic Valve The pulmonary valve is normal in structure. There is no pulmonic valvular stenosis. Trace pulmonic re gurgitation. Great Vessels The aortic root is normal in size. The ascending aorta is mildly dilated.3.53 cm Aortic arch is debbie l in caliber. IVC is normal in size and collapses >50% with inspiration. Pericardium There is no pericardial effusion. 2D Dimensions IVSD d PLAX 0.81 cm F: 0.6-1.0 LV Vol A2C d MOD 109.9 mL LVPW d PLAX 0.84 cm F: 0.6 - 1.0 LV Vol A4C d MOD 96.5 mL LVID d PLAX 4.62 cm F: 3.8 - 5.2 LA vol/ BSA A2C s A-L 28.1 mL/m2 LVDs 3.15 cm F: 2.2 - 3.5 LA vol/ BSA A4C s A-L 20.2 mL/m2 Ao Root d 3.03 cm F: 2.7 - 3.3 LA Vol/ BSA Biplane s A-L 24.2 mL/m2 RA Area A4C 13.56 cm2 LA Area A4C s MOD 15.97 cm2 RA Vol/ BSA A4C s A-L 15.4 mL/m2 LA Area A2C s MOD 19.12 cm2 Ao Asc Diam d 3.53 cm F: 2.3 - 3.1 LV EF A4C MOD 59.9 % LV EF Teichholz 58.9 % LV EF A2C MOD 58.3 % LVEF (Odbson's) 59.12 % F: 54 - 74 LV EF Biplane MOD 59.1 % LV Volume 77.45 mL F: 46 - 106 SV 60.92 mL LV Volume Index 39.11 mL/m2 F: 29 - 61 SV Index 30.65 mL/m2 LV Vol Biplane MOD 103.0 mL FS 31.10 % M-Mode TAPSE 2.28 cm (M/F) >1.7 LV Diastology MV E' medial 0.052 (>0.07 m/s) E/A Ratio 1.3 LV E/e MED 10.00 (<14) MV E Vmax 0.52 (0.4-1.3 m/s) MV E' lateral 0.122 (>0.1 m/s) MV A Vmax 0.40 (0.4-1.3 m/s) LV E/e LAT 4.25 (<14) MV E/A Ratio 1.28 MV E/E' medial 10.04 MV E/E' lateral 4.28 Aortic Valve LVOT Area 3.04 cm2 AoV Area Vmax 2.99 cm2 LVOT Vmax 1.26 m/s AoV Area/ BSA (Vmax) 1.50 cm2/m2 LVOT Mean Dangelo. 0.78 m/s CAIO Mean Dangelo. 2.70 cm2 LVOT Peak Grad 6.4 mmHg CAIO Mean Dangelo. Index 1.36 cm2/m2 LVOT Mean Grad 2.9 mmHg LVOT VTI 0.249 m LVOT Diam s 1.95 cm AoV Vmax 1.28 m/s Velocity Ratio 0.98 AoV Mean Dangelo. 0.87 m/s AoV Peak Grad 6.6 mmHg LVOT SV 75.67 mL AoV Mean Grad 3.4 mmHg AoV VTI 0.238 m AoV Area VTI 3.18 cm2 AoV Area/ BSA (VTI) 1.60 cm/m2 Mitral Valve MV DT 204 (160-240 msec) MV PHT 59 msec MV Area PHT 3.71 cm2 MV VTI 0.198 m MV Area VTI 3.81 (4.0-6.0 cm2) Pulmonary Valve PV Vmax 1.09 (0.5-1.5 m/s) RVOT Peak Gr. 2.08 mmHg PV Peak Grad 4.8 mmHg RVOT Mean Gr. 0.95 mmHg PV Mean Grad 2.4 mmHg RVOT VTI 0.158 m PV VTI 0.242 m RVOT Vmax 0.72 m/s Tricuspid Valve TR Peak Grad 18.5 mmHg TR Vmax 2.15 m/s RA Pressure 3.00 mmHg RVSP (TR) 21.5 mmHg
== END 2021-02-05 02:36 ==
PROVIDERS: PCP Family Medicine; Visit Provider Student in an Organized Health Care Education/Training Program
DX: R07.9 Chest pain, unspecified (principal); R06.09 Other forms of dyspnea; I77.810 Thoracic aortic ectasia
CPT/HCPCS: 93306

== ENCOUNTER 2021-03-20 09:22 | Outpatient (REF) | payer BC, SELFPAY ==
[2021-03-20 14:19] LABS: Calculated LDL 103 mg/dL (<100); Cholesterol 167 mg/dL (<200); HDL Cholesterol 57 mg/dL (40-60); Hemoglobin A1C 5.2 % (<5.7); Triglyceride 37 mg/dL (<150)
[2021-03-23 11:12] LABS: Hepatitis C Ab w Rflx HCV PCR Negative (Negative)
[2021-03-23 22:14] LABS: Strongyloides IgG Antibody Negative (Negative)
== END 2021-03-20 09:23 | disposition home or self-care (01) ==
LOC: NCHCN 09:22
PROVIDERS: PCP Family Medicine; Visit Provider Family Medicine
DX: Z00.00 Encounter for general adult medical examination without abnormal findings (principal); R06.02 Shortness of breath
CPT/HCPCS: 80061; 86803; 83036; 86682

== ENCOUNTER 2021-06-17 10:29 | Outpatient (REF) | payer BC, SELFPAY ==
[2021-06-18 11:08] LABS: Anion Gap 5.6 mmol/L (3-11); BUN 15 mg/dL (7-18); CO2 27.4 mmol/L (21.0-32.0); CREATININE 0.8 mg/dL (0.55-1.02); Calcium 9.1 mg/dL (8.5-10.1); Chloride 106 mmol/L (98-107); Glucose 91 mg/dL (74-106); Magnesium 2.1 mg/dL (1.8-2.4); Potassium 4.3 mmol/L (3.5-5.1); Sodium 139 mmol/L (136-145); TSH (W/Ref FT4) 1.76 uIU/mL (0.36-3.74)
== END 2021-06-17 10:30 | disposition home or self-care (01) ==
LOC: NCHCN 10:29
PROVIDERS: PCP Family Medicine; Visit Provider Family Medicine
DX: R00.2 Palpitations (principal)
CPT/HCPCS: 80048; 83735; 84443

== ENCOUNTER 2021-06-19 12:49 | Outpatient (RCR) | payer BC, SELFPAY ==
--- NOTE | 2021-06-19 16:45 | HOLTER_ITS ---
APPROVED REPORT Conclusion This is a 48-hour Holter monitor ordered for palpitations Predominant rhythm is sinus with an average heart rate of 71. Minimum was 51, maximum 128 A total of 2 isolated PVCs were seen A total of 12 premature atrial contractions were recorded There was no atrial fibrillation, no high-grade AV block, no pauses greater than 3 seconds No patient symptoms were reported
== END 2021-06-29 23:59 | disposition home or self-care (01) ==
LOC: RT 12:49
PROVIDERS: PCP Family Medicine; Visit Provider Family Medicine
DX: R00.2 Palpitations (principal); I49.3 Ventricular premature depolarization; I49.1 Atrial premature depolarization
CPT/HCPCS: 93225; 93226

== ENCOUNTER 2022-06-15 20:09 | Outpatient (REF) | payer BC, SELFPAY ==
[2022-06-15 19:04] LABS: Abs Immature Grans 0.01 10^3/uL (0.0-0.06); Absolute Basophil Count 0.04 10^3/uL (0.0-0.2); Absolute Eosinophil Count 0.35 10^3/uL (0.0-0.7); Absolute Monocyte Count 0.44 10^3/uL (0.1-0.8); Absolute Neutrophil Count 2.78 10^3/uL (1.2-6.7); Basophils % 0.6; Eosinophils % 5.6; HCT 39.9 % (36.0-46.0); HGB 13.7 g/dL (11.2-15.7); Immature Grans % 0.2; Lymphocytes % 41.8; MCH 33.6 pg (27.0-33.0); MCHC 34.3 % (32.0-36.0); MCV 98 fL (80-95); MPV 10.9 fL (8.0-11.0); Monocytes % 7.1; Neutrophils % 44.7; Platelet Count 203 10^3/uL (130-400); RBC 4.08 10^6/uL (3.93-5.22); RDW 12.6 % (11.7-14.6); RDW-SD 45.2 fL; WBC 6.22 10^3/uL (4.4-10.8)
[2022-06-15 19:25] LABS: ALT 19 U/L (14-59); AST 22 U/L (15-37); Albumin 3.8 g/dL (3.4-5.0); Alkaline Phosphatase 79 U/L (46-116); BUN 6 mg/dL (7-18); Bilirubin, Total 0.5 mg/dL (0.2-1.0); CREATININE 0.9 mg/dL (0.55-1.02); Calcium 9.1 mg/dL (8.5-10.1); Chloride 104 mmol/L (98-107); Estimated GFR 81.86 (mL/min/1.73m2); Glucose 88 mg/dL (74-106); Lipase 151 U/L (73-393); Potassium 3.9 mmol/L (3.5-5.1); Sodium 138 mmol/L (136-145); Total Protein 7.1 g/dL (6.4-8.2)
[2022-06-17 12:25] LABS: IgA 376 mg/dL (85-499); Interpretation (See Note); Tissue Transglutaminase IgA <1.2 U/mL (<4.0)
== END 2022-06-15 20:10 | disposition home or self-care (01) ==
LOC: NCHCN 20:09
PROVIDERS: PCP Family Medicine; Visit Provider Family Medicine
DX: R10.9 Unspecified abdominal pain (principal)
CPT/HCPCS: 80053; 82784; 83516; 83690; 85025

== ENCOUNTER 2022-08-23 11:37 | Outpatient (REF) | payer BC, SELFPAY ==
--- NOTE | 2022-08-23 11:26 | ENDOMET_PTH ---
PATIENT: Ana Marcum LOC: [facility] U#:[id number] AGE/SX: 41/F ROOM: RE08/23/[address]: Brea Thapa MD : [id number] BED: DIS: 08/23/2022 SPEC #: [id number] RECD: 08/23/22 17:39 STATUS: TONY REQ #: [id number] RHONA: 08/23/22 11:[address]: Brea Thapa DEPT: Surgical Specimen RECD BY: Sandy Alejandro ENTERED: 08/23/22 17:40 SP TYPE: Endomet OTHR DR: Blaise Harris Tissues: 1 - ENDOMETRIUM BX/DEBBIE Procedures: GROSS AND MICRO LEVEL 4 Comments: [id number]
== END 2022-08-23 11:38 | disposition home or self-care (01) ==
LOC: LBN 11:37
PROVIDERS: PCP Family Medicine; Visit Provider Obstetrics & Gynecology
DX: N85.8 Other specified noninflammatory disorders of uterus (principal); N93.8 Other specified abnormal uterine and vaginal bleeding
CPT/HCPCS: 88305

== ENCOUNTER → 2023-11-11 01:22 | Outpatient (CLI) | payer BC, SELFPAY ==
--- NOTE | 2023-11-11 | DI.MAMMO_ITS ---
Exam(s) MAMMO SCREENING EXAM: MAMMO SCREENING CLINICAL HISTORY: SCREENING.Z12.31. TECHNIQUE: Bilateral full field digital CC and MLO mammographic images were obtained with 3D tomosyn thesis and utilizing computer aided detection (CAD). COMPARISON: Prior mammograms were reviewed. FINDINGS: In the left breast there is asymmetric density in the retroareolar region now evident which measures 1.5 by 0.8 cm, located 1.5 cm in from the nipple on the CC view. Requires further imaging. In the upper outer quadrant of the left breast there is a small asymmetric density also more prominen t than on prior studies-possible nodule, this measuring approximately 8 x 4 mm and approximately 12 c m in from the nipple, lateral of center on the CC view. There are no malignant-appearing microcalcification groups. No new significant findings in the oppos ite-right breast. There is no significant architectural distortion nor skin thickening-retraction. IMPRESSION: 1. No radiographic evidence of malignancy in the right breast. 2. There are 2 asymmetric densities-possible nodules in the left breast, 1 anteriorly and 1 posterola terally. Additional spot compression views and breast ultrasound recommended. BI-RADS Category 0 - Assessment Incomplete: Need additional imaging evaluation Breast Density - Category B - Scattered areas of fibroglandular density Breast density Category C or D implies that the patient has dense breast tissue. Dense breast tissue can make it harder to find cancer on a mammogram. Dense breast tissue is also associated with an incr eased risk of breast cancer. This information about the result of the mammogram report was provided to the patient to raise their awareness. Use this report when you speak with the patient about their risks for breast cancer, which includes their family history. At that time, you may recommend additional screening tests (Ultrasoun d or MRI) as these tests may add significant information. A negative radiographic report should not delay biopsy if a dominant or clinically suspicious mass is present. Up to ten percent of cancers are not identified on mammography. A negative report may reinforce clinical impression. Adenosis and dense breasts may obscure an underlying neoplasm. False positive reports average 6 to 10%. Patient will receive a letter notifying them of these results.
== END ==
PROVIDERS: PCP Family Medicine; Visit Provider Family Medicine
DX: Z12.31 Encounter for screening mammogram for malignant neoplasm of breast (principal); R92.8 Other abnormal and inconclusive findings on diagnostic imaging of breast
CPT/HCPCS: 77063; 77067

== ENCOUNTER → 2023-11-18 00:21 | Outpatient (CLI) | payer BC, SELFPAY ==
--- NOTE | 2023-11-18 | DI.US_ITS ---
Exam(s) MG MAMMO SCREEN CALL BACK UNI US BREAST LT COMPLETE EXAM: MG MAMMO SCREEN CALL BACK UNI CLINICAL HISTORY: 2 ASYMMETRIC DENSITIES LEFT BREAST R92.8 ABNL MAMMO. TECHNIQUE: Craniocaudal and mediolateral oblique spot compression digital Mammography views of the l eftbreast with Tomosynthesis and left breast ultrasound. COMPARISON: US US BREAST LT COMPLETE from 11/18/2023 FINDINGS: Mammography/Tomosynthesis: Masses: No abnormality seen in the retroareolar region. Findings consistent with overlying fibroglan dular tissue. Small area of nodularity persists laterally. Architectural Distortion: None seen. Microcalcifictions: No suspicious pleomorphic-type are seen. Skin Thickening/Nipple Retraction: None. Left breast US: Echotexture: Normal appearance of the glandular tissue. Shadowing: No suspicious foci. Cyst: Non 4 x 3 x 4 millimeter cyst lateral left breast 3 o'clock position, 7 cm from the nipple. Th is likely corresponds to the area of nodularity seen on mammogram. Solid lesions: None seen. Ductal dilation: Dilated duct in the subareolar region. IMPRESSION: 1. No evidence of malignancy is noted. 2. Unless there is more urgent need, follow-up screening mammography is recommended, as per [employer] guidelines. 3. The findings were discussed with the patient on the date of the examination. BI-RADS Category 2 - Benign Findings Breast Density - Category B - Scattered areas of fibroglandular density A mammogram that demonstrates density of C or D indicates the patient's breast tissue is dense. Dense breast tissue is very common and is not abnormal, but dense breast tissue can make it harder to find cancer on a mammogram. Also, dense breast tissue may increase their breast cancer risk. This informa tion about the result of the mammogram report was provided to the patient to raise their awareness. U se this report when you speak with the patient about their risks for breast cancer, which includes th eir family history. At that time, you may recommend for more screening tests (Ultrasound or MRI) as t hey might be useful based on their risk. A negative radiographic report should not delay biopsy if a dominant or clinically suspicious mass is present. Up to ten percent of cancers are not identified on mammography. A negative report may reinforce clinical impression. Adenosis and dense breasts may obscure an underlying neoplasm. False positive reports average 6 to 10%. Patient will receive a letter notifying them of these results.
== END ==
PROVIDERS: PCP Family Medicine; Visit Provider Family Medicine
DX: R92.8 Other abnormal and inconclusive findings on diagnostic imaging of breast (principal)
CPT/HCPCS: 76642; 77063; 77067

== ENCOUNTER 2024-03-09 11:14 | Outpatient (REF) | payer OTHER, SELFPAY ==
--- NOTE | 2024-03-09 16:15 | PAPFT_PTH ---
PATIENT: Ana Marcum LOC: N U#:[id number] AGE/SX: 43/F ROOM: RE03/09/[address]: Brea Thapa MD : [id number] BED: DIS: 03/09/2024 SPEC #: [id number] RECD: 03/12/24 13:03 STATUS: TONY REQ #: [id number] RHONA: 03/09/24 16:[address]: Brea Thapa DEPT: [facility] Cytology RECD BY: Connie العراقي ENTERED: 03/12/24 13:04 SP TYPE: PAPFT OTHR DR: Blaise Harris Tissues: 1 - CX/ENDOCX FOR PAP SMEARS Procedures: PAP THIN PREP/[facility] Screening HPV DNA PROBE Comments: [id number] (HPV 16 & 18/45)
== END 2024-03-09 11:15 | disposition home or self-care (01) ==
LOC: LBN 11:14
PROVIDERS: Visit Provider Obstetrics & Gynecology
DX: Z12.4 Encounter for screening for malignant neoplasm of cervix (principal)
CPT/HCPCS: 88142; 87624

== ENCOUNTER 2024-09-13 00:43 | Outpatient (CLI) | payer MEDICAID, SELFPAY ==
--- NOTE | 2024-09-13 12:00 | DI.US_ITS ---
Exam(s) US PELVIS TRANSVAGINAL EXAM: US PELVIS TRANSVAGINAL CLINICAL HISTORY: anatomy, pelvic pain, R10.2 perineal pain TECHNIQUE: Transabdominal and transvaginal imaging was performed using standard protocol. COMPARISON: US US PELVIS TRANSVAGINAL from 08/23/2022 FINDINGS: UTERUS: Anteverted. 9.1 x 5.2 x 5.5 cm Endometrium: 5 mm Myometrium: Heterogeneous. Fibroid measuring 8 millimeters noted posteriorly. Cervix: Unremarkable. OVARIES: Right: Cyst or mass: None. Left: Cyst or mass: 18 millimeter dominant follicle. DOPPLER: Color: Symmetric and uniform flow to both ovaries. No hyperemia. CUL-DE-SAC: Free fluid: None. IMPRESSION: 1. Heterogeneous myometrium and small posterior fibroid.. 2. Unremarkable bilateral ovaries. DATA REPOSITORY:
== END 2024-09-13 01:03 ==
LOC: DI 00:43
PROVIDERS: Visit Provider Obstetrics & Gynecology
DX: R10.2 Pelvic and perineal pain (principal)
CPT/HCPCS: 76830; 76856

== ENCOUNTER 2025-01-08 00:52 | Outpatient (CLI) | payer MEDICAID, SELFPAY ==
--- NOTE | 2025-01-08 08:00 | DI.MAMMO_ITS ---
Exam(s) MAMMO SCREENING EXAM: MAMMO SCREENING CLINICAL HISTORY: Z12.39 Screening mammogram TECHNIQUE: Mammograms were interpreted according to the usual protocol including computer analysis with CAD system, tomosynthesis and C-view imaging. COMPARISON: 2017 through 2023 FINDINGS: The breasts are composed of scattered fibroglandular densities, Breast Density category B. No suspicious masses or suspicious microcalcifications are seen. No skin thickening or abnormal axillary lymph nodes are seen. There has been no significant change from prior exams. IMPRESSION: BI-RADS Category 1, Negative mammogram Yearly screening mammography is recommended. Breast Density - Category B - There are scattered areas of fibroglandular density. Breast density Category C or D implies that the patient has dense breast tissue. Dense breast tissue can make it harder to find cancer on a mammogram. Dense breast tissue is also associated with an increased risk of breast cancer. This information about the result of the mammogram report was provided to the patient to raise their awareness. Use this report when you speak with the patient about their risks for breast cancer, which includes their family history. At that time, you may recommend additional screening tests (Ultrasound or MRI) as these tests may add significant information. A negative radiographic report should not delay biopsy if a dominant or clinically suspicious mass is present. Up to ten percent of cancers are not identified on mammography. A negative report may reinforce clinical impression. Adenosis and dense breasts may obscure an underlying neoplasm. False positive reports average 6 to 10%. Patient will receive a letter notifying them of these results.
== END 2025-01-08 01:12 ==
PROVIDERS: PCP Family Medicine; Visit Provider Family Medicine
DX: Z12.31 Encounter for screening mammogram for malignant neoplasm of breast (principal); R92.323 Mammographic fibroglandular density, bilateral breasts
CPT/HCPCS: 77063; 77067